=== PATIENT | male | born 1940 | race Caucasian/White ===

== ENCOUNTER 2022-03-01 10:32 | Outpatient (CLI) | payer MEDICARE, OTHER, SELFPAY ==
[2022-03-01 11:38] LABS: Anion Gap 8 mmol/L (8-16); Blood Urea Nitrogen 16 mg/dL (9-20); Calcium 9.2 mg/dL (8.4-10.2); Carbon Dioxide 26 mmol/L (22-30); Chloride 98 mmol/L (98-107); Estimated Glomerular Filt Rate > 60; Glucose 101 mg/dL (65-110); Potassium 3.9 mmol/L (3.4-5.0); Sodium 132 mmol/L (137-145)
== END 2022-03-01 10:33 | disposition home or self-care (01) ==
PROVIDERS: Anesthesiology; Visit Provider Urology
DX: Z01.818 Encounter for other preprocedural examination (principal); Z79.899 Other long term (current) drug therapy
CPT/HCPCS: 36415; 80048

== ENCOUNTER 2022-03-07 01:30 | Day surgery (SDC) | payer MEDICARE, OTHER, SELFPAY ==
[2022-02-26 09:26] VITALS: BMI 26.0
--- NOTE | 2022-02-26 09:35 | PC.NURSE ---
Report to the Outpatient Waiting Room, entrance under the green pavilion located off [facility], at time __1300 on date _03/07/22 . OR Time: __1500 . Time changes happen often and if your time is changed the preop area will call you the afternoon before. - You and your visitor will be asked to self-screen and do not enter if you have any COVID symptoms. - We encourage only one visitor and NO visitors under age 16 are allowed at this time. Your visitor will receive communication by the phone number that is given day of service. - The patient visitor is requested to social distance or may leave the building when not with patient due to restrictions. - A mask is required within the hospital. Patients may have clear liquids (water, carbonated beverages, clear teas, apple juice) until 3 hours prior to surgery with a maximum of 20 ounces. - No food from midnight until time of surgery - Infants may have breast milk until 4 hours before surgery, infant formula 6 hours prior to surgery. - Children will be allowed to drink immediately following surgery. If applicable, please bring a bottle or sippy cup to assist with drinking. Juice, water, soda, and popsicles are readily available. For infants on formula, please bring formula the day of surgery. Pacifiers are allowed. Take the following medications with a SIP of water the morning of surgery: ___FELODIPINE,LEVOTHYROXINE Medications to discontinue per physician PT STATES PLAVIX AND ALL_VITAMINS 7 DAYS PRE OP PER DR FLYNN Date to take last dose___02/27/22 Please no make-up, nail malagasy, hairspray, perfume, deodorant, or body powder the day of surgery. No jewelry (including any body piercings) or valuables the day of surgery, leave them at home. Please take a shower or bath the night before, or the morning of, surgery with an antibacterial soap. Wear comfortable, loose fitting clothing. Children are encouraged to wear pajamas. - Jewelry must be removed prior to entering the operating room. Rings and piercings that are not removed may be cut off. - The hospital will not accept responsibility for valuables. - Please leave all valuables, including medications, at home the day of surgery. If you are going home after surgery, a licensed ross carrier driver must drive you home. - NO public transportation without another adult. - We recommend that an adult stay with you for 24 hours following discharge. - We also recommend that you do not drive, make important decision, drink alcoholic beverages, or take any drugs that were not prescribed by your health care provider for at least 24 hours after your discharge time. For Pediatric surgeries, we recommend two adults accompany the child home. Follow any additional instructions given to you from your surgeon. If you or anyone in your household have experienced Covid symptoms in the past week, please notify your surgeon or the nurse liaison at the phone number below for possible testing. Telephone instructions given to ___PATIENT and asked if any additional questions and then verbalized understanding. Patient advised to call surgeon office or pre surgery nurse liaison [phone] if any additional questions.
--- NOTE | 2022-03-06 15:01 | P.PNAN_ITS ---
Anes - Initial Pre Proc Eval Procedure: Operation Date: 03/07/22 15:00 Proposed Procedures p Urolift - Dami Herrera MD Date/Time: 03/06/22 15:01 Surgeon: aDmi Herrera MD Pre Op Diagnosis: BPH Patient Data Age: 81 Gender: M Height: 1.83 m Weight: 87.1 kg Allergies Allergy/AdvReac Type Severity Reaction Status Date / Time No Known Allergies Allergy Verified 03/07/22 13:06 Home Medications Medication Instructions Recorded Confirmed Type cholecalciferol (vitamin D3) 25 25 mcg PO DAILY 02/26/22 03/07/22 History mcg (1,000 unit) tablet clopidogrel 75 mg tablet 75 mg PO DAILY 02/26/22 03/07/22 History cyanocobalamin (vitamin B-12) 1,000 mcg PO DAILY 02/26/22 03/07/22 History 1,000 mcg tablet felodipine 10 mg tablet,extended 10 mg PO DAILY 02/26/22 03/07/22 History release 24 hr glucosamine-chondroitin 167 mg-133 1 cap PO DAILY 02/26/22 02/26/22 History mg capsule hydrochlorothiazide 12.5 mg tablet 12.5 mg PO DAILY 02/26/22 02/26/22 History latanoprost 0.005 % eye drops 1 drp EACH EYE HS 02/26/22 02/26/22 History levothyroxine 125 mcg tablet 125 mcg PO DAILY 02/26/22 03/07/22 History (Synthroid) losartan 100 mg tablet 100 mg PO DAILY 02/26/22 02/26/22 History tamsulosin 0.4 mg capsule (Flomax) 0.4 mg PO HS 02/26/22 02/26/22 History zinc 50 mg tablet 50 mg PO DAILY 02/26/22 03/07/22 History Patient hx anesthesia problems: none Family hx anesthesia problems: none Results Review: All pre-operative results and documents have been reviewed as part of the pre- operative evaluation. [facility] Past Medical History Medical History (Updated 03/06/22 @ 15:04 by Checo Marmolejo MD) Arthritis BPH (benign prostatic hyperplasia) Glaucoma HTN (hypertension) Hyperlipidemia Hypothyroidism Overweight (BMI 25.0-29.9) TIA (transient ischemic attack) Social History Social History Smoking packs per day: 1 Smoking cigarettes per day: 20.0 Years smoked: 35 Smoking pack-years: 35.00 Smoking status: Former smoker Tobacco type: cigarettes Smoking end date: 05/13/93 Alcohol intake: current Drinks per week: 3 Living arrangements: alone Spiritual care concerns: No Anes - Eval Final PreProcedure Day of Procedure 03/06/22 15:01 Patient weight: overweight Heart: regular rate and rhythm Lungs: clear to auscultation and normal air movement Airway: Mallampati scale class II Neurological: alert and oriented Last oral intake: >/= 8 hours ASA classification: III Emergent: no Anesthetic plan: proceed Anesthesia type and monitoring: general GIVS and LMA Results Review: All pre-operative results and documents have been reviewed as part of the pre- operative evaluation. Informed Consent: The patient's anesthetic plan and its attendant risks and benefits were discussed with the patient/family/POA. Questions were solicited and answers provided to the satisfaction of the patient/family/POA.
[2022-03-07] VITALS (8 sets, daily range): BP systolic 116–166; BP diastolic 55–97; PULSE 52–59; RESP 10–16; TEMP 36.1–36.3; O2SAT 98–100; BMI 26.2
[2022-03-07] MEDS: ACETAMINOPHEN 500 MG TABLET 1000 MG PO (13:34)
[2022-03-07] MEDS: LACTATED RINGERS 1,000 ML 30 ML IV CONT (14:15)
--- NOTE | 2022-03-07 14:38 | WPDHPUPDATE1 ---
History and Physical Update Update Date/Time: 03/07/22 14:38 History and Physical has been reviewed, including an updated exam of the patient. There are NO changes in the patient's condition. Risks, benefits, and alternatives have been discussed and questions answered. Patient agrees to proceed with procedure.
--- NOTE | 2022-03-07 14:38 | WPDURCON ---
Assessment and Plan Assessment and plan (1) BPH (benign prostatic hyperplasia): Code(s): N40.0 - Benign prostatic hyperplasia without lower urinary tract symptoms Status: Acute Plan -plan cystoscopy and UroLift procedure. -the risks benefits and alternatives were discussed with patient he agrees to proceed with the procedure today. Urology Consult Note HPI Date Seen: 03/07/22 Requesting Physician: Dami Herrera MD Primary Care Provider: PHYSICIAN NOT ON STAFF Consult Narrative Narrative: Ankur Herndon Sr. is a 81 year old male with BPH. He presents today urolift procedure [facility] Past Medical History Medical History (Updated 03/06/22 @ 15:04 by Checo Marmolejo MD) Arthritis BPH (benign prostatic hyperplasia) Glaucoma HTN (hypertension) Hyperlipidemia Hypothyroidism Overweight (BMI 25.0-29.9) TIA (transient ischemic attack) Social History Social History Smoking packs per day: 1 Smoking cigarettes per day: 20.0 Years smoked: 35 Smoking pack-years: 35.00 Smoking status: Former smoker Tobacco type: cigarettes Smoking end date: 05/13/93 Alcohol intake: current Drinks per week: 3 Living arrangements: alone Spiritual care concerns: No Meds Home Medications and Allergies Home Medications Medication Instructions Recorded Confirmed Type cholecalciferol (vitamin D3) 25 25 mcg PO DAILY 02/26/22 03/07/22 History mcg (1,000 unit) tablet clopidogrel 75 mg tablet 75 mg PO DAILY 02/26/22 03/07/22 History cyanocobalamin (vitamin B-12) 1,000 mcg PO DAILY 02/26/22 03/07/22 History 1,000 mcg tablet felodipine 10 mg tablet,extended 10 mg PO DAILY 02/26/22 03/07/22 History release 24 hr glucosamine-chondroitin 167 mg-133 1 cap PO DAILY 02/26/22 02/26/22 History mg capsule hydrochlorothiazide 12.5 mg tablet 12.5 mg PO DAILY 02/26/22 02/26/22 History latanoprost 0.005 % eye drops 1 drp EACH EYE HS 02/26/22 02/26/22 History levothyroxine 125 mcg tablet 125 mcg PO DAILY 02/26/22 03/07/22 History (Synthroid) losartan 100 mg tablet 100 mg PO DAILY 02/26/22 02/26/22 History tamsulosin 0.4 mg capsule (Flomax) 0.4 mg PO HS 02/26/22 02/26/22 History zinc 50 mg tablet 50 mg PO DAILY 02/26/22 03/07/22 History Allergies Allergy/AdvReac Type Severity Reaction Status Date / Time No Known Allergies Allergy Verified 03/07/22 13:06 Vital Signs Vital Signs - 24 hr 03/07/22 13:00 Temperature 36.3 C L Pulse Rate 54 L Respiratory Rate 16 Blood Pressure 162/65 H Pulse Oximetry 100 Oxygen Delivery Room Air Exam Narrative: The patient is awake and alert. He is in no acute distress. His breathing is unlabored. His abdomen is soft and nondistended
[2022-03-07] MEDS: ceFAZolin 2 GM/D5W 50 ML 2 GM/50 ML BAG IVPB (14:44)
[2022-03-07] MEDS: LIDOCAINE HCL 2% GEL UROJET 10 ML PKG MUCOUS MEM (15:05)
--- NOTE | 2022-03-07 15:16 | W.PM.PROC2 ---
Procedure Note - Detailed Date of Procedure 03/07/22 Pre-op Diagnosis BPH Post-op Diagnosis Same Procedure Performed cystoscopy Urolift x 4 Surgeon Dami Herrera MD Description of Procedure Informed consent was obtained. Patient taken the operating room. He was given preoperative IV antibiotics. He was induced anesthesia. A 20F cystoscope was inserted into the bladder. The cystoscopy bridge was replaced with a UroLift delivery device. The first treatment site was the patient's left side approximately 2 cm distal to the bladder neck which was approximately the level of the verumontanum. The distal tip of the delivery device was then angled laterally approximately 20 degrees at this position to compress the lateral lobe. The trigger was pulled, thereby deploying a needle containing the implant through the prostate. The needle was then retracted, allowing one end of the implant to be delivered to the capsular surface of the prostate. The implant was then tensioned to assure capsular seating and removal of slack monofilament. The device was then angled back toward midline and slowly advanced until cystoscopic verification of the monofilament being centered in the delivery bay. The urethral end piece was then affixed to the monofilament thereby tailoring the size of the implant. Excess filament was then severed. The delivery device was then re-advanced into the bladder. The delivery device was then replaced with cystoscope and bridge and the implant location and opening effect was confirmed cystoscopically. The same procedure was then repeated on the right side, and two additional implants were delivered just proximal to the veru montanum allowing for a stacking technique, again one on right and one on left side of the prostate, following the same technique. Cystoscopy then revealed no persistent area of obstruction. A final cystoscopy with rigid and flexible cystoscope was conducted first to inspect the location and state of each implant and second, to confirm the presence of a continuous anterior channel was present through the prostatic urethra with irrigation flow turned off. The bladder was then filled with 150 cc irrigation fluid to assist the patient in void trial after the procedure, and all instruments were removed. Lidocaine Uro jet instilled. Patient taken recovery room stable condition Complications No immediate complications Condition Stable Disposition PACU
== END 2022-03-07 17:20 | disposition home or self-care (01) ==
PROVIDERS: Visit Provider Urology
PROC: 0T7D8DZ Dilation of Urethra with Intraluminal Device, Via Natural or Artificial Opening Endoscopic (ICD-10-PCS; CPT 52441; principal; 2022-03-07 15:00)
DX: N40.1 Benign prostatic hyperplasia with lower urinary tract symptoms (principal); R39.11 Hesitancy of micturition; R39.12 Poor urinary stream; I10 Essential (primary) hypertension; E78.5 Hyperlipidemia, unspecified; E03.9 Hypothyroidism, unspecified; H40.9 Unspecified glaucoma; Z86.73 Personal history of transient ischemic attack (TIA), and cerebral infarction without residual deficits; Z87.891 Personal history of nicotine dependence; Z79.02 Long term (current) use of antithrombotics/antiplatelets
CPT/HCPCS: C9740; A9270; J0690; J1100; J2405; J2704; J3010; J7120; L8699